=== PATIENT | male | born 1990 | race African-American/Black ===

== ENCOUNTER 2018-07-05 17:49 | Emergency (ER) | payer MEDICAID ==
[~2018-07-05] VITALS: Ht 170.2 cm; Wt 62.0 kg
[~2018-07-05 17:49] MED LIST: DIPH50CA20
[2018-07-05 20:12] VITALS: BP 117/67
== END 2018-07-05 22:45 | disposition left against medical advice (07) ==
LOC: ER 17:49
DX: Z53.21 Procedure and treatment not carried out due to patient leaving prior to being seen by health care provider (principal)

== ENCOUNTER 2018-09-28 00:09 | Emergency (ER) | payer MEDICAID ==
[~2018-09-28] VITALS: Ht 172.7 cm; Wt 62.0 kg
[2018-09-28 00:30] VITALS: BP 100/54
== END 2018-09-28 05:29 | disposition left against medical advice (07) ==
LOC: ER 00:09
DX: M25.511 Pain in right shoulder (principal); Z53.21 Procedure and treatment not carried out due to patient leaving prior to being seen by health care provider

== ENCOUNTER 2020-08-22 10:26 | Emergency (ER) | payer MEDICAID ==
[~2020-08-22] VITALS: Ht 170.2 cm; Wt 64.0 kg
[2020-08-22] MEDS ORDERED: IBUP-2028 MT (11:24)
[2020-08-22] MEDS ORDERED: IBUPROFEN 600MG TABLET PO ONE (11:30)
[2020-08-22 11:36] VITALS: BP 100/75
== END 2020-08-22 11:36 | disposition home or self-care (01) ==
LOC: ER 10:26
DX: S50.861A Insect bite (nonvenomous) of right forearm, initial encounter (principal); J45.909 Unspecified asthma, uncomplicated; E78.00 Pure hypercholesterolemia, unspecified; F12.10 Cannabis abuse, uncomplicated; W57.XXXA Bitten or stung by nonvenomous insect and other nonvenomous arthropods, initial encounter; Y93.89 Activity, other specified; Y92.89 Other specified places as the place of occurrence of the external cause
CPT/HCPCS: 99282

== ENCOUNTER 2020-09-28 12:02 | Emergency (ER) | payer MEDICAID ==
[~2020-09-28] VITALS: Ht 170.2 cm; Wt 61.0 kg
[~2020-09-28 12:02] MED LIST changes: +IBUP-2028 MT
[2020-09-28] MEDS ORDERED: ONDANSETRON HCL 4MG/2ML INJ IV STA (12:39)
[2020-09-28] MEDS ORDERED: KETOROLAC 30MG/ML VIAL IV STA (12:39)
[2020-09-28] MEDS ORDERED: SODIUM CHLORIDE 0.9% 1,000 ML IV ONE (12:45)
[2020-09-28 12:51] LABS: HEMATOCRIT. 48.7 % (42.0-52.0); HEMOGLOBIN. 16.3 g/dL (14.0-18.0); MEAN CORPUSCULAR VOLUME 86.6 fL (80.0-94.0); MEAN PLATELET VOLUME 8.5 fl (7.4-10.4); PLATELET 142 x1000/uL (130-400); RED BLOOD CELL COUNT 5.63 mill/uL (4.7-6.1); RED CELL DISTRIBUTION WIDTH 15.1 % (11.6-14.6)
[2020-09-28 12:57] LABS: CHLORIDE 105 mEq/L (98-107)
[2020-09-28 13:36] LABS: PLATELET ESTIMATE NORMAL
[2020-09-28 14:00] VITALS: BP 117/73
[2020-09-28] MEDS ORDERED: ONDA4TAB5 MT (14:52)
== END 2020-09-28 15:37 | disposition home or self-care (01) ==
LOC: ER 12:02
DX: R07.89 Other chest pain (principal); R11.10 Vomiting, unspecified; D72.829 Elevated white blood cell count, unspecified
CPT/HCPCS: 36415; 71045; 80053; 83690; 84484; 85025; 93005; 96361; 96374; 96375; 99285; J1885; J2405; J7030